=== PATIENT | male | born 1965 | race Caucasian/White ===

== ENCOUNTER → 2019-11-23 | Outpatient (CLI) | payer BC ==
[~2019-11-23] MED LIST: PERCOCET 325 MG1 TA7 PO; VICODIN ES 7501 TAB PO
== END | disposition home or self-care (01) ==
LOC: COVID19 10:12
PROVIDERS: ATTEND Physician Assistant Medical
DX: Z20.828 Contact with and (suspected) exposure to other viral communicable diseases (principal)

== ENCOUNTER → 2020-03-02 | Outpatient (CLI) | payer BC | END | disposition home or self-care (01) | LOC: COVID19 11:12 | PROVIDERS: ATTEND Family Medicine | DX: Z20.828 Contact with and (suspected) exposure to other viral communicable diseases (principal) ==

== ENCOUNTER → 2020-12-06 | Outpatient (CLI) | payer BC | END | disposition home or self-care (01) | LOC: COVID19 16:21 | PROVIDERS: ATTEND Student in an Organized Health Care Education/Training Program | DX: U07.1 COVID-19 (principal) ==

== ENCOUNTER 2023-08-19 20:52 | Emergency (ER) | payer OTHER ==
[~2023-08-19] VITALS: Ht 175.2 cm; Wt 113.4 kg
[2023-08-19] MEDS ORDERED: CYCLOBENZAPRINE5 M3 PO (21:36)
[2023-08-19] MEDS ORDERED: Cyclobenzaprine Hydrochlorid 10 MG TAB PO ONE (21:55)
== END 2023-08-19 21:52 | disposition home or self-care (01) ==
LOC: ED 20:52
DX: M79.662 Pain in left lower leg (principal)